=== PATIENT | female | born 1970 | race Caucasian/White ===

== ENCOUNTER → 2024-06-21 | Outpatient (CLI) | payer BC, SELFPAY ==
--- NOTE | 2024-06-21 14:00 | XR_ITS ---
Examination: Breast ultrasound complete, bilateral Date and time of exam: June 21, 2024 1328 hrs. Indications: Bilateral breast lumps in the 4:00 position note is beginning 2 years ago Technique: Real-time grayscale ultrasonographic imaging bilateral breasts, including all 4 quadrants as well as nipple retroareolar and axillary regions. Findings: Sonographic images right and left breast demonstrated no cystic or solid masses 16 x 18 mm right axillary lymph node Impression: BI-RADS Category 2: Benign findings
--- NOTE | 2024-06-21 15:00 | XR_ITS ---
Examination: Screening digital mammography, bilateral Computer aided detection 3-D breast Tomosynthesis, bilateral Date and time of exam: 06/21/2024, 8:39 PM Comparisons: September 2014 Indications: Screening, bilateral palpable abnormalities. Technique: Nonmagnified MLO, CC views of the breasts to been obtained, reconstructed from 3-D Tomosynthesis images. R2 computer aided detection program utilized for evaluation of suspicious masses and/or abnormal calcifications. 3-D Tomosynthesis images obtained. Technologist: Findings: There are scattered areas of fibroglandular density. Bilateral subpectoral saline implants appear intact. No evidence of abnormal masses or suspicious calcifications. Impression: Negative screening mammogram in patient with bilateral palpable abnormalities. Recommend bilateral diagnostic mammograms with spot compression views and ultrasound evaluation of the palpable areas. BI-RADS category 0: Incomplete assessment; need additional imaging evaluation
== END | disposition home or self-care (01) ==
PROVIDERS: PCP Nurse Practitioner Family; Referring Provider Nurse Practitioner Family; Visit Provider Nurse Practitioner Family
DX: Z12.31 Encounter for screening mammogram for malignant neoplasm of breast (principal); R92.8 Other abnormal and inconclusive findings on diagnostic imaging of breast
CPT/HCPCS: 76641; 77063; 77067

== ENCOUNTER → 2024-07-13 | Outpatient (CLI) | payer BC, SELFPAY ==
--- NOTE | 2024-07-13 13:00 | XR_ITS ---
Examination: Breast ultrasound complete, bilateral Date and time of exam: July 13, 2024 1331 hours INDICATIONS: Patient states bilateral breast lumps beginning 2 years ago, family history breast cancer Technique: Real-time grayscale ultrasonographic imaging bilateral breasts, including all 4 quadrants as well as nipple retroareolar and axillary regions. Findings: Sonographic images right and left breast demonstrated no cystic or solid masses IMPRESSION: BI-RADS Category 1: Negative study
--- NOTE | 2024-07-13 14:15 | XR_ITS ---
Examination: Diagnostic digital mammography, bilateral Computer aided detection 3-D breast Tomosynthesis, bilateral Date and time of exam: July 13, 2024 1405 hours INDICATIONS: Patient states bilateral palpable breast abnormalities Technique: Nonmagnified MLO, CC views of the breasts to been obtained, reconstructed from 3-D Tomosynthesis images. R2 computer aided detection program utilized for evaluation of suspicious masses and/or abnormal calcifications. 3-D Tomosynthesis images obtained. Findings: Scattered areas of fibroglandular density. Spot compression films inner quadrant lower quadrant right breast, upper outer quadrant left breast at the site of palpable abnormalities No cystic or solid masses noted Impression: BI-RADS Category 2: Benign findings Return to yearly follow-up mammography If palpable breast abnormalities persists, recommend repeat bilateral breast sonography in 3-6 months.
== END | disposition home or self-care (01) ==
LOC: CDIM 13:04
PROVIDERS: PCP Family Medicine; Referring Provider Family Medicine; Visit Provider Family Medicine
DX: R92.323 Mammographic fibroglandular density, bilateral breasts (principal)
CPT/HCPCS: 76641; 77062; 77066; G0279

== ENCOUNTER → 2024-09-22 | Outpatient (CLI) | payer BC, SELFPAY ==
--- NOTE | 2024-09-22 09:36 | XR_ITS ---
Examination: Foot, left, 3 views Technique: AP, oblique, lateral views foot, 3 views Date and time of exam: September 22, 2024 at 0944 hours INDICATIONS: Redness swelling and pain involving the foot beginning one month ago FINDINGS: Moderate osteopenia No acute fracture No todd cortical bone destruction IMPRESSION: No todd cortical bone destruction If symptoms persist, consider MRI foot without contrast follow-up
== END | disposition home or self-care (01) ==
LOC: CDIM 09:29
PROVIDERS: PCP Family Medicine; Referring Provider Registered Nurse; Visit Provider Registered Nurse
DX: M79.675 Pain in left toe(s) (principal)
CPT/HCPCS: 73630

== ENCOUNTER → 2024-09-25 | Outpatient (CLI) | payer BC, SELFPAY ==
[2024-09-25 13:19] LABS: Lactate (Lactic Acid) 1.3 mMol/L (0.4-2.0)
[2024-09-25 13:28] LABS: Basophils % (Auto) 1 % (0-2.5); Eosinophils # (Auto) 0.1 Thou/mm3 (0.0-0.5); Eosinophils % (Auto) 4 % (0-10); Hematocrit 35.6 % (36.0-46.0); Hemoglobin 12.2 g/dL (12.0-16.0); Immature Granulocytes % (Auto) 0 % (0-0); Lymphocytes # (Auto) 0.5 Thou/mm3 (1.0-4.8); Lymphocytes % (Auto) 32 % (10-50); Mean Corpuscular HGB Conc 34.3 g/dl (31.0-37.0); Mean Corpuscular Hemoglobin 30.2 pg (25.0-35.0); Mean Corpuscular Volume 88 fL (80-100); Monocytes # (Auto) 0.4 Thou/mm3 (0.0-0.8); Monocytes % (Auto) 21 % (0-12); Neutrophils # (Auto) 0.7 Thou/mm3 (1.8-7.7); Neutrophils % (Auto) 43 % (37-80); Nucleated Red Blood Cell % 0 /100 WBC (0); Platelet Count 196 Thou/mm3 (140-440); RDW Standard Deviation 40.3 fL (36.4-46.3); Red Blood Count 4.04 Miln/mm3 (4.00-5.20)
[2024-09-25 13:46] LABS: Alanine Aminotransferase 8 U/L (10-49); Albumin, Serum 4.2 gm/dL (3.5-5.0); Anion Gap 9 (7-16); Aspartate Amino Transferase 18 U/L (0-34); BUN/Creatinine Ratio 6 Ratio (12-20); Bilirubin,Total 0.5 mg/dL (0.3-1.2); Blood Urea Nitrogen < 5 mg/dL (9-23); Calcium 8.7 mg/dL (8.3-10.6); Calcium (Corrected) 8.7 mg/dL (8.5-10.1); Carbon Dioxide 28.2 mMol/L (20.0-31.0); Chloride 105 mMol/L (98-107); Creatinine (Component) 0.8 mg/dL (0.6-1.3); Globulin 2.1 gm/dL (2.3-3.5); Glucose 97 mg/dL (74-106); Osmolality,Calculated 280 (275-295); Potassium 3.6 mMol/L (3.4-5.1); Sodium 142 mMol/L (136-145); Total Protein 6.3 gm/dL (5.7-8.2); eGFR > 60 See Note
[2024-09-25 13:47] LABS: Alkaline Phosphatase 59 U/L (46-116)
[2024-09-25 13:59] LABS: White Blood Count 1.7 Thou/mm3 (3.6-11.0)
[2024-09-25 16:04] LABS: Path Review Blood Smear Sent to Pathologist
== END | disposition home or self-care (01) ==
LOC: COPL 12:42
PROVIDERS: PCP Family Medicine; Referring Provider Nurse Practitioner Family; Visit Provider Nurse Practitioner Family
DX: D72.819 Decreased white blood cell count, unspecified (principal); M79.675 Pain in left toe(s)
CPT/HCPCS: 36415; 80053; 83605; 85025

== ENCOUNTER → 2024-09-26 | Outpatient (CLI) | payer BC, SELFPAY ==
--- NOTE | 2024-09-26 14:30 | XR_ITS ---
Examination: MRI left foot, without contrast Date and time of exam: September 26, 2024 1501 hours INDICATIONS: Left first digit pain and swelling beginning one month ago Technique: Multiple axial sagittal and coronal images of the left foot have been obtained with the Siemens high-resolution 1.5 Nishi MRI scanner. Images obtained include T2-weighted fat-suppressed sagittal sections, TR 3500, TE 46, T2 weighted coronal fat suppressed images, TR 3050, TE 84, T2-weighted transverse fat suppressed images, TR 3260, TE 63, proton density transverse images, TR 4720 TE 46, and T1 weighted coronal images, TR 560, TE 13. Findings: Soft tissue swelling dorsal to the distal phalanx first digit No soft tissue abscess No cortical bone destruction involving the distal phalanx first digit or other digits Metatarsals are intact Plantar fascia intact as well as flexor tendons Mild plantar fasciitis No occult fracture No avascular necrosis IMPRESSION: Negative for soft tissue abscess Negative for osteomyelitis
== END | disposition home or self-care (01) ==
LOC: SMRI 14:17
PROVIDERS: PCP Family Medicine; Referring Provider Nurse Practitioner Family; Visit Provider Nurse Practitioner Family
DX: M79.675 Pain in left toe(s) (principal)
CPT/HCPCS: 73718

== ENCOUNTER → 2024-10-31 | Outpatient (CLI) | payer BC, SELFPAY ==
[2024-10-31 16:30] LABS: Basophils # (Auto) 0.0 Thou/mm3 (0.0-0.2); Basophils % (Auto) 1 % (0-2.5); Eosinophils # (Auto) 0.1 Thou/mm3 (0.0-0.5); Eosinophils % (Auto) 4 % (0-10); Hematocrit 38.9 % (36.0-46.0); Hemoglobin 12.8 g/dL (12.0-16.0); Immature Granulocytes Auto 0.00 Thou/mm3 (0.00-0.00); Lymphocytes # (Auto) 0.7 Thou/mm3 (1.0-4.8); Lymphocytes % (Auto) 31 % (10-50); Mean Corpuscular HGB Conc 32.9 g/dl (31.0-37.0); Mean Corpuscular Hemoglobin 30.3 pg (25.0-35.0); Mean Corpuscular Volume 92 fL (80-100); Monocytes # (Auto) 0.5 Thou/mm3 (0.0-0.8); Monocytes % (Auto) 21 % (0-12); Neutrophils # (Auto) 1.0 Thou/mm3 (1.8-7.7); Neutrophils % (Auto) 44 % (37-80); Nucleated Red Blood Cell # 0.00 Thou/mm3 (0.00-0.00); Nucleated Red Blood Cell % 0 /100 WBC (0); Platelet Count 207 Thou/mm3 (140-440); RDW Standard Deviation 42.2 fL (36.4-46.3); Red Blood Count 4.22 Miln/mm3 (4.00-5.20)
[2024-10-31 16:46] LABS: White Blood Count 2.2 Thou/mm3 (3.6-11.0)
[2024-10-31 16:48] LABS: Vitamin B12 > 2000 pg/mL (211-911); Vitamin D 25 Hydroxy Total 39.4 ng/mL (7.3-40.2)
[2024-10-31 17:03] LABS: Alanine Aminotransferase 8 U/L (10-49); Albumin, Serum 4.1 gm/dL (3.5-5.0); Albumin/Globulin Ratio 1.6 (1.2-2.2); Alkaline Phosphatase 70 U/L (46-116); Anion Gap 9 (7-16); Aspartate Amino Transferase 18 U/L (0-34); BUN/Creatinine Ratio 6 Ratio (12-20); Bilirubin,Total 0.4 mg/dL (0.3-1.2); Blood Urea Nitrogen < 5 mg/dL (9-23); Calcium 9.2 mg/dL (8.3-10.6); Calcium (Corrected) 9.2 mg/dL (8.5-10.1); Carbon Dioxide 29.7 mMol/L (20.0-31.0); Chloride 105 mMol/L (98-107); Creatinine (Component) 0.9 mg/dL (0.6-1.3); Globulin 2.5 gm/dL (2.3-3.5); Glucose 84 mg/dL (74-106); Magnesium 1.9 mg/dL (1.6-2.6); Osmolality,Calculated 283 (275-295); Potassium 4.3 mMol/L (3.4-5.1); Sodium 144 mMol/L (136-145); Total Protein 6.6 gm/dL (5.7-8.2); eGFR > 60 See Note
== END | disposition home or self-care (01) ==
LOC: COPL 15:31
PROVIDERS: PCP Family Medicine; Referring Provider Family Medicine; Visit Provider Family Medicine
DX: R53.1 Weakness (principal)
CPT/HCPCS: 36415; 80053; 82306; 82607; 83735; 85025

== ENCOUNTER → 2025-01-30 | Outpatient (CLI) | payer BC, SELFPAY ==
--- NOTE | 2025-01-30 17:00 | XR_ITS ---
Examination: CT maxillofacial, without intravenous contrast. 2-D sagittal reconstructions. 3-D reconstructions. Date and time of exam: January 30, 2025, 1700 hours INDICATIONS: Diagnosis dental caries, deviated nasal septum CTDI: vol (mGy): 5.59 DLP: (mGycm): 104 Technique: Multiple axial images of maxillofacial region, 3.0 mm slice thickness. 2-D sagittal and coronal reconstructions. 3-D reconstructions. Low dose protocols were performed. One or more of the following dose reduction techniques were used; automated exposure control, adjustment of the mA and/or KV according to patient size, use of iterative reconstruction technique. Findings: Frontal bones frontal sinuses intact No nasal bone fracture No depression zygomatic arches Deviation nasal septum to the left 3 mm Areas of bone radiolucency around incisor dental implants in the maxilla, axial image 32 No fractures IMPRESSION: Deviation nasal septum to the left 3 mm Areas of bone resorption around incisor dental implants in the maxilla.
== END | disposition home or self-care (01) ==
LOC: CCTX 16:51
PROVIDERS: PCP Family Medicine; Referring Provider Otolaryngology Plastic Surgery within the Head & Neck; Visit Provider Otolaryngology Plastic Surgery within the Head & Neck
DX: J34.2 Deviated nasal septum (principal)
CPT/HCPCS: 70486